=== PATIENT | female | born 2000 | race Caucasian/White ===

== ENCOUNTER 2024-04-16 19:29 | Emergency (ER) | payer MEDICAID ==
[2024-04-16] MEDS: Lidocaine 2% Viscous Solution 15 ML UD PO ONE (20:40)
[2024-04-16] MEDS: Benzocaine 20% Topical Spray UD MUCMEM ONE (20:41)
[2024-04-16] MEDS: Amoxicillin/Clavulanate K 875-125 MG Tab PO ONE (20:41)
== END 2024-04-16 20:52 | disposition home or self-care (01) ==
LOC: MW.ED 19:29
DX: K04.7 Periapical abscess without sinus (principal); Z75.8 Other problems related to medical facilities and other health care
CPT/HCPCS: 99283; A9270

== ENCOUNTER 2024-10-20 16:42 | Emergency (ER) | payer MEDICAID ==
[2024-10-20] MEDS: Amoxicillin/Clavulanate K 875-125 MG Tab PO STA (18:45)
[2024-10-20] MEDS: traMADol 50 MG Tab PO STA (18:45)
== END 2024-10-20 18:48 | disposition home or self-care (01) ==
LOC: MW.ED 16:42
DX: K04.7 Periapical abscess without sinus (principal); J45.909 Unspecified asthma, uncomplicated; Z90.49 Acquired absence of other specified parts of digestive tract; Z88.8 Allergy status to other drugs, medicaments and biological substances; Z79.899 Other long term (current) drug therapy; Z75.8 Other problems related to medical facilities and other health care
CPT/HCPCS: 99282; A9270

== ENCOUNTER 2024-11-09 17:06 | Emergency (ER) | payer MEDICAID ==
[2024-11-09] MEDS: Lidocaine 2% Viscous Solution 15 ML UD PO ONE (18:27)
[2024-11-09] MEDS: Benzocaine 20% Topical Spray UD MUCMEM ONE (18:27)
== END 2024-11-09 18:29 | disposition home or self-care (01) ==
LOC: MW.ED 17:06
DX: K04.7 Periapical abscess without sinus (principal); Z79.899 Other long term (current) drug therapy; Z75.8 Other problems related to medical facilities and other health care; Z88.8 Allergy status to other drugs, medicaments and biological substances
CPT/HCPCS: 99282; A9270; 99283

== ENCOUNTER 2025-02-11 07:46 | Day surgery (SDC) | payer MEDICAID ==
[~2025-02-11 07:46] MED LIST: Sodium Chloride 0.9% 10 ML Syringe FLUSH PRN; Sodium Chloride 0.9% 2.5 ML Syringe FLUSH PRN; Sodium Chloride 0.9% 20 ML ONE; Sodium Chloride 0.9% 20 ML SDV IV PRN; dexmedeTOMIDine HCl 200 MCG/2 ML SDV ONE; fentaNYL 100 MCG/2 ML SDV ONE; propofoL 500 MG/50 ML 50 ML ONE
[2025-02-11] MEDS ORDERED: Ondansetron 4 MG/2 ML SDV IVPUSH PRN (08:16)
[2025-02-11] MEDS ORDERED: Morphine 2 MG/ML SYRINGE IVPUSH PRN (08:16)
[2025-02-11] MEDS ORDERED: Phenylephrine HCl In 0.9% NaCl 1 MG/10 ML Syringe IVPUSH PRN (08:16)
[2025-02-11] MEDS ORDERED: Naloxone 0.4 MG/ML SDV IVPUSH PRN (08:16)
[2025-02-11] MEDS ORDERED: Albuterol 0.083% 2.5 MG/3 ML Neb Soln NEB PRN (08:16)
[2025-02-11] MEDS ORDERED: Metoclopramide 10 MG/2 ML SDV IVPUSH PRN (08:16)
[2025-02-11] MEDS: Lactated Ringers 1,000 ML IV SCH (08:25)
[2025-02-11] MEDS ORDERED: Bupivacaine 0.5% 30 ML SDV ONE (08:34)
[2025-02-11] MEDS ORDERED: Lidocaine 2% 11 ML Jelly Filled Syringe ONE ×2 (08:35→08:50)
[2025-02-11] MEDS ORDERED: propofoL 500 MG/50 ML 50 ML ONE (09:42)
[2025-02-11] MEDS ORDERED: fentaNYL 100 MCG/2 ML SDV ONE (10:05)
[2025-02-11] MEDS: HYDROmorphone 1 MG/ML Syringe IVPUSH PRN (10:44)
[2025-02-11] MEDS: fentaNYL 50 MCG/ML SDV IVPUSH PRN (10:44)
[2025-02-11] MEDS ORDERED: Rocuronium Bromide 50 MG/5 ML Syringe ONE (15:20)
[2025-02-11] MEDS ORDERED: cefOXitin 1 GM Vial ONE (15:21)
== END 2025-02-11 12:04 | disposition home or self-care (01) ==
LOC: MW.SDS 07:46
PROVIDERS: ATTEND Surgery
DX: K63.89 Other specified diseases of intestine (principal); K64.8 Other hemorrhoids; F17.200 Nicotine dependence, unspecified, uncomplicated; Z88.8 Allergy status to other drugs, medicaments and biological substances; Z83.79 Family history of other diseases of the digestive system; Z91.013 Allergy to seafood; Z91.011 Allergy to milk products; Z79.899 Other long term (current) drug therapy
CPT/HCPCS: 43239; 45380; 46255; 81025; A9270; J0665; J0694; J1171; J2704; J3010; J7120; 00813; J3490

== ENCOUNTER 2025-06-16 08:52 | Emergency (ER) | payer MEDICAID | END 2025-06-16 10:15 | disposition home or self-care (01) | LOC: MW.ED 08:52 | DX: L29.9 Pruritus, unspecified (principal); J45.909 Unspecified asthma, uncomplicated; Z90.49 Acquired absence of other specified parts of digestive tract; Z88.8 Allergy status to other drugs, medicaments and biological substances; Z91.011 Allergy to milk products; Z91.013 Allergy to seafood; Z79.899 Other long term (current) drug therapy | CPT/HCPCS: 99282; 99283 ==